=== PATIENT | female | born 2000 | race Caucasian/White ===

== ENCOUNTER → 2024-06-16 11:52 | Outpatient (CLI) | payer OTHER, SELFPAY ==
[2024-06-16 14:30] LABS: Urine N gonorrhoeae NOT DETECTED
[2024-06-16 14:31] LABS: Urine Chlamydia NOT DETECTED
== END ==
LOC: LAB 11:53
PROVIDERS: PCP Family Medicine; Visit Provider Obstetrics & Gynecology
DX: Z34.91 Encounter for supervision of normal pregnancy, unspecified, first trimester (principal); Z3A.09 9 weeks gestation of pregnancy
CPT/HCPCS: 87491; 87591

== ENCOUNTER → 2024-07-14 10:55 | Outpatient (CLI) | payer OTHER, SELFPAY ==
[2024-07-14 11:56] LABS: Add Manual Diff / Slide Review NO; Basophils Absolute Auto 0 /uL (0-100); Basophils Percent Auto 0.1 % (0-2); Eosinophils Absolute Auto 100 /uL (0-450); Eosinophils Percent Auto 0.7 % (2-4); Hemoglobin 12.4 g/dL (12.0-16.0); Lymphocytes Absolute Auto 2100 /uL (1100-4500); Lymphocytes Percent Auto 21.1 % (25-40); Mean Corpuscular HGB Conc 33.5 % (30-36); Mean Corpuscular Hemoglobin 30.4 PG (26-34); Mean Corpuscular Volume 90.9 fL (80-100); Monocytes Absolute Auto 700 /uL (0-900); Monocytes Percent Auto 6.5 % (3-14); Neutrophils Absolute Auto 7300 /uL (1500-7000); Neutrophils Percent Auto 71.6 % (50-75); Platelet Count 246 X10^3/uL (150-400); Red Blood Cell Count 4.07 X10^6/uL (4.0-5.2); Red Cell Distribution Width 13.1 % (11.6-14.8); White Blood Cell Count 10.2 X10^3/uL (4.5-11.0)
[2024-07-14 12:04] LABS: Natera Collection Specimen Collected
[2024-07-14 13:24] LABS: Hepatitis B Surface Antigen NEGATIVE s/c (NEGATIVE)
[2024-07-14 13:39] LABS: HIV 1 & 2 Ab/Ag 4th Gen Combo NEGATIVE (NEGATIVE); Hep C Virus Ab w/Reflex Quant NEGATIVE s/c (NEGATIVE)
[2024-07-15 04:40] LABS: RPR Screen Non Reactive (Non Reactive)
[2024-07-15 10:11] LABS: Varicella IgG Antibody Non Reactive (Non Reactive)
== END ==
PROVIDERS: Specialist; PCP Family Medicine; Referring Provider Obstetrics & Gynecology; Visit Provider Obstetrics & Gynecology
DX: Z34.00 Encounter for supervision of normal first pregnancy, unspecified trimester (principal); Z3A.10 10 weeks gestation of pregnancy
CPT/HCPCS: 36415; 80055; 86787; 86803; 86850; 86900; 86901; 87086; 87389

== ENCOUNTER → 2024-08-11 12:07 | Outpatient (CLI) | payer OTHER, SELFPAY | PROVIDERS: PCP Family Medicine; Referring Provider Obstetrics & Gynecology; Visit Provider Obstetrics & Gynecology | DX: Z34.02 Encounter for supervision of normal first pregnancy, second trimester (principal); Z3A.17 17 weeks gestation of pregnancy | CPT/HCPCS: 36415; 82105 ==

== ENCOUNTER → 2024-09-08 14:50 | Outpatient (CLI) | payer OTHER, SELFPAY ==
--- NOTE | 2024-09-08 14:51 | DI.US.S_ITS ---
PROCEDURE: US OB >= 14 WEEKS FETUS INDICATIONS: ANATOMY OUTSIDE/PRIOR DATING DATA: Last menstrual period (LMP): 04/10/2024. LMP-based estimated date of delivery (HONORIO): 01/15/2025. First dating scan (date and location): 06/17/2019. Estimated date of delivery (HONORIO) from first dating scan: 01/12/2025. The calculations are made using the working HONORIO of 01/15/2025. TECHNIQUE: Real-time scanning was performed of the fetus, with image documentation and biometric measurements. Endovaginal scanning: No COMPARISON: None. FINDINGS: General: A single living intrauterine gestation is present. Presentation: Vertex. Placenta: Placental position is anterior , without previa. Amniotic fluid index: 12.4 cm, normal range is 5-24 cm. Single deepest vertical pocket is 4.1 cm. heart rate: 157 beats per minute. Maternal cervical canal: 3.6 cm long. Normal lower limit is 2.5 cm. biometrics: Biparietal diameter: 5.6 cm, 22 week 2 day Head circumference: 20.0 cm, 22 week 1 day Abdominal circumference: 16.7 cm, 21 week 5 day Femur length: 4.0 cm, 22 week 6 day Clinically estimated gestational age: 21 week 4 day Composite gestational age from present scan: 22 week 2 day Estimated weight and percentile: 487 g, 79 percentile Anatomic survey: Neuro: Ventricles are non-dilated at less than 10 mm. Cisterna magna is normal at 3-11 mm. Cerebellum is normal in size and morphology. Nuchal skin fold: Normal at less than 6 mm between 14-21 weeks gestational age. Face: Nose and lips, facial profile are normal. Spine: No evidence for spina bifida. Heart: 4-chambered heart is present, with normal ventricular outflow tracts. Diaphragm: Diaphragm is intact. Stomach: Left-sided stomach is present. Kidneys: No hydronephrosis. Normal is less than 5 mm in 2nd trimester, less than 7 mm in 3rd trimester. Cord: 3-vessel cord has orthotopic insertion. Possible single nuchal loop Bladder: Normal in size. Extremities: All 4 extremities identified. IMPRESSION: Single live intrauterine consistent with 22 week 2 day gestation by current ultrasound. Normal anatomic survey Possible single loop nuchal cord. Approved by: Govind Winn M.D. on 09/09/2024 at 9:24
== END ==
LOC: US 14:50
PROVIDERS: PCP Family Medicine; Referring Provider Obstetrics & Gynecology; Visit Provider Obstetrics & Gynecology
DX: Z34.02 Encounter for supervision of normal first pregnancy, second trimester (principal); Z3A.20 20 weeks gestation of pregnancy
CPT/HCPCS: 76811

== ENCOUNTER → 2024-12-22 09:43 | Outpatient (CLI) | payer OTHER, SELFPAY ==
[2024-12-23 11:12] LABS: Strep Grp B PCR NEG for Grp B Strep
== END ==
PROVIDERS: Visit Provider Obstetrics & Gynecology
DX: Z36.85 Encounter for antenatal screening for Streptococcus B (principal)
CPT/HCPCS: 87653

== ENCOUNTER 2025-01-24 19:22 | Inpatient (IN) | payer OTHER, SELFPAY ==
[2025-01-24 20:44] VITALS: BP 118/53
[2025-01-24 20:50] LABS: Add Manual Diff / Slide Review NO; Hematocrit 33.1 % (36-46); Hemoglobin 11.1 g/dL (12.0-16.0); Lymphocytes Absolute Auto 3000 /uL (1100-4500); Mean Corpuscular HGB Conc 33.5 % (30-36); Mean Corpuscular Hemoglobin 28.4 PG (26-34); Mean Corpuscular Volume 84.9 fL (80-100); Platelet Count 343 X10^3/uL (150-400)
[2025-01-24] MEDS: ZOLPIDEM 5 MG TABLET PO (23:58)
--- NOTE | 2025-01-25 08:07 | PM.OBHP.IH.1 ---
OB HPI Date/Time Date of admission: 01/24/25 Date Patient Seen: 01/24/25 Time Patient Seen: 20:30 History of Present Condition Chief complaint: induction HONORIO Calculator Estimated Delivery Date Method Current WG Current Estimate 01/15/25 LMP (Certain) 41w 4d Other Estimates 01/12/25 Ultrasound #1 42w 0d Estimated Gestational Age (weeks): 41w3d : 1 care: good care Dating criteria OB: LMP confirmed by 1st trimester US Ultrasounds: normal mid trimester US Obstetrical complications: none Medical complications OB: none Narrative: Patient is a 24yo G1 @ 41w3d presents to L&D for scheduled inductoin of labor at postdates. reports irregular contractions. denies LOF/VB and reports good movement. Indications Indication for induction OB: post dates Preadmission Labs Last OB Lab Results: Blood Type A Positive 01/24/25, 20:05 Antibody Screen Negative 01/24/25, 20:05 Hct, (36-46) 33.1 % L 01/24/25, 20:05 Hgb, (12.0-16.0) 11.1 g/dL L 01/24/25, 20:05 Hep Bs Antigen, (NEGATIVE) Negative s/c 07/14/24, 11:03 Hepatitis C Antibody, (NEGATIVE) Negative s/c 07/14/24, 11:03 Rubella Antibody, (>15) 22.0 IU/mL 07/14/24, 11:03 VZV IgG Antibody, (Non Reactive) Non reactive 07/14/24, 11:03 Glucose 1 Hr 50 gm, (76-139) 74 mg/dL L 10/06/24, 09:17 Group B Strep (PCR) Neg for grp b strep 12/22/24, 09:43 Genetic Screens: Cell-free DNA: Normal Evaluation Evaluation Baseline heart rate: 145 Variability: Moderate (6-25) monitor accelerations: Present Monitor Decelerations: Absent Contraction Frequency (minutes): 10 Uterine Contraction Intensity: Mild Category of Tracing: Reactive Status: Category l Dilation (cm): 0.5 Effacement (%): 50 Dilation: Closed Effacement: 40-50% station: -3 Position of cervix: posterior Consistency: medium Cortez score: 2 PFSH Surgical History (Updated 06/02/24 @ 13:34 by Sandie Stoner RN) [place] teeth extracted Family History (Updated 06/02/24 @ 13:36 by Sandie Stoner RN) Grandfather Congenital heart defect Uncle Congenital heart defect Grandmother Diabetes mellitus Colon cancer Brother Autism Father Family estrangement Social History marital status: number of children: 0 household members: spouse and friend(s) lives independently: Yes caregiver/support person: No housing: house pets and animals: Yes (cat, dogs) education level: high school occupational status: employed 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) special brad needs: No travel history: over 6 months ago seatbelt use: always water heater temp set < 120 deg: Yes working smoke detector in home: Yes fire extinguisher in home: Yes carbon monox detector in home: Yes firearms in home: No do you feel safe at home: Yes second hand exposure: No alcohol intake: former substance use type: does not use during the past year weight has: increased > 10 lbs well-balanced diet: daily or most days daily servings fruits/ve-4 caffeine: No (quit with ) Type(s) of exercise: walking Meds Home Medications and Allergies Home Medications ?Medication ?Instructions ?Recorded ?Confirmed ?Type doxylamine succinate 25 mg tablet 25 mg PO BEDTIME PRN allergy 06/02/24 01/24/25 History symptoms vitamin-ferrous sulfate tab PO 06/02/24 01/11/25 History 27 mg iron-folic acid 0.8 mg tablet Allergies Allergy/AdvReac Type Severity Reaction Status Date / Time No Known Drug Allergies Allergy Verified 01/24/25 22:15 OB Exam Narrative Exam Narrative: general- AAo x 3, NAD abdomen- gravid cervix- 0.5/50/-3 BSUS- vertex Objective Labs 01/24/25 20:05 Labs: Laboratory Results - last 24 hr 01/24/25 20:05 WBC 14.9 H RBC 3.90 L Hgb 11.1 L Hct 33.1 L MCV 84.9 MCH 28.4 MCHC 33.5 RDW 13.7 Plt Count 343 Neut % (Auto) 70.8 Lymph % (Auto) 20.3 L [place] % (Auto) 7.8 Eos % (Auto) 0.6 L Baso % (Auto) 0.5 Neut # (Auto) 14449 H Lymph # (Auto) 3000 [place] # (Auto) 1200 H Eos # (Auto) 100 Baso # (Auto) 100 Blood Type A Positive Antibody Screen Negative Assessment and Plan Assessment and Plan Assessment and Plan narrative: Patient is a 24yo G1 @ 41w3d presents for scheduled induction of labor for postdates. 1. Induction of labor- admit to L&D - CEFM, IVF - cervix unfavorable - misoprostol 50mcg PO q 4 hours for cervical ripening - pain analgesia per request - will augment with pitocin when indicated - GBS negative - EFW by [facility]- 8.5-9lbs - anticipate Time-Based Coding :: [TOTAL MINUTES] spent with patient and on the chart (including review of chart, obtaining history, exam, reviewing outside data, placing orders, documenting exam and treatment plan, and counseling patient) on [DATE].
[2025-01-25] MEDS: LACTATED RINGERS 1,000 ML 999 ML IV (08:53)
--- NOTE | 2025-01-25 08:55 | PM.AN.REGBLK ---
[facility] <Brook Siddiqui CRNA - Last Filed: 01/25/25 08:58> Pre-procedure Procedure: Continuous Lumbar Epidural for L&D Attending OB provider: Chandrika Bell PMH/ROS narrative: , healthy, IOL for post dates PSH/Anesthesia history narrative: Hx wisdom teeth, no anesthesia complications Exam narrative: See pre eval form ASA Class: II Labs: Hct 33.1 % (36-46) L 01/24/25 20:05 Plt Count 343 X10^3/uL (150-400) 01/24/25 20:05 Medications: Current Medications Generic Name Dose Route Start Last Admin Trade Name Freq PRN Reason Stop Dose Admin Carboprost Tromethamine 250 mcg 01/24/25 20:44 Carboprost 250 Mcg/Ml Ampul IM Q90M PRN Bleeding Tranexamic Acid 1,000 mg/ 100 mls @ 600 mls/hr 01/24/25 20:44 Sodium Chloride IV NOW PRN Bleeding Oxytocin/Lactated Ringer's 30 unit in 500 mls @ 200 mls/hr 01/24/25 20:44 Oxytocin Premix IV CONT PRN Bleeding Protocol Lidocaine HCl 20 ml 01/24/25 20:44 Lidocaine 1% 20 Ml INJ INTRA-OP PRN Post Delivery Methylergonovine Maleate 0.2 mg 01/24/25 20:44 Methylergonovine 0.2 Mg Tablet PO Q6HR PRN Heavy Bleeding Methylergonovine Maleate 0.2 mg 01/24/25 20:44 Methylergonovine 0.2 Mg/Ml Vial IM NOW PRN Bleeding Mineral Oil 30 ml 01/24/25 20:44 Mineral Oil 30 Ml Udc TOP PRN PRN Version Misoprostol 400 mcg 01/24/25 20:44 Misoprostol 200 Mcg Tablet SL NOW PRN Bleeding Misoprostol 800 mcg 01/24/25 20:44 Misoprostol 200 Mcg Tablet TX NOW PRN Bleeding Misoprostol 50 mcg 01/24/25 20:44 01/25/25 00:54 Misoprostol 25 Mcg Tablet PO 50 mcg Q4H PRN Administration cervical ripening Naloxone HCl 0.2 mg 01/24/25 20:44 Naloxone 0.4 Mg/Ml Vial IV Q2MIN PRN Opiate Reversal Oxytocin 10 unit 01/24/25 20:44 Oxytocin 10 Unit/Ml Vial IM NOW PRN Bleeding Zolpidem Tartrate 5 mg 01/24/25 23:31 01/24/25 23:58 Zolpidem 5 Mg Tablet PO 5 mg BEDTIME PRN Administration Sleep Allergies: Allergies Allergy/AdvReac Type Severity Reaction Status Date / Time No Known Drug Allergies Allergy Verified 01/24/25 22:15 Procedure Insertion date: 01/25/25 Insertion time: 08:37 Prep/Local: betadine x3 (CHG) and 1% lidocaine (3mL) Interspace: L3-4 Patient position: sitting Needle: 18 gauge Hustead (Mekitec) Loss of resistance with: saline MERVIN at (cm): 8 Catheter placed at SKIN (cm): 14 Catheter in SPACE (cm): 6 Insertion: No CSF, No Blood, No Paresthesia with insertion, No Paresthesia with injection and No Test dose reaction Initial Medications TEST DOSE time: 08:39 TEST DOSE: 1.5% lidocaine with epinephrine 1:200k (mL): 3 BOLUS DOSE time: 08:45 BOLUS DOSE (mL): 6 BOLUS DOSE med: other (infusate) Infusion INFUSION: 0.125% bupivacaine and with fentanyl 2 mcg/mL Initial rate (mL/hr): 10 Post-procedure Anesthesia date START: 01/25/25 Anesthesia time START: 08:25 <Yani Delgado CUSTOMER SERVICE TRAINER - Last Filed: 01/25/25 23:46> Infusion Subsequent interventions: 1130: Decreased basal rate to 6mL/hr and gave 25mg IM ephedrine for persistent hypotension and decelerations. - AB, CUSTOMER SERVICE TRAINER 1512: Increased basal rate to 8ml/hr. - AB, CUSTOMER SERVICE TRAINER 1830: Called to bedside for hip pain that has resolved, now states having intermittent central cervical pain 2/10. Discussed realistic pain goals. Increased basal rate to 10ml/hr and gave 50mcg fentanyl via epidural. -AB, CUSTOMER SERVICE TRAINER 2230: Called to bedside for top off, reporting low anterior pain. She is pushing with good effort. BPs remain on the soft side. Epidural bolus given of 5mL 2% lido and 5mL 0.25% bupi. Premixed diluted ephedrine for RNs to have at bedside if needed. -AB, CUSTOMER SERVICE TRAINER Post-procedure Anesthesia date END: 01/25/25 Anesthesia time END: 23:46 Post-procedure Anesthesia Assessment: Yes CV function: HR/BP stable, Yes Resp function: RR/sat/airway adequate, Yes Post-op hydration adequate, Yes Pain control adequate, Yes Nausea & vomiting absent, Yes Temperature > 36 C, Yes Mental status appropriate and No Anesthesia complications
[2025-01-25] MEDS: ePHEDrine 50 MG/ML VIAL 10 MG IV ×3 (09:15→10:33)
[2025-01-25] MEDS: OXYTOCIN PREMIX 30 UNIT/500 ML PLAST..BAG IV (10:08)
[2025-01-25] MEDS: LACTATED RINGERS 1,000 ML 100 ML IV ×2 (10:11→15:28)
[2025-01-25] MEDS: FENT 2MCG/ML BUPIV 0.125% EPI 200 MCG/100 ML PLAST..BAG 10 MCG EPIDURAL (15:28)
[2025-01-25] MEDS: ONDANSETRON 4 MG/2 ML INJ IV (23:25)
--- NOTE | 2025-01-26 00:38 | P.PCNOB_ITS ---
Events: Postterm Labor > 42 wks and Meconium Stained Fluid Labor & Delivery Delivery date: 01/26/25 Delivery Time: 23:46 Intrapartal Events: Prolonged 2nd Stage > 2.5 hours Cervical ripening method: per misoprostal protocol Induction method: per pitocin protocol Delivery augmentation: rupture of membranes Delivery monitor: external FHT Route of delivery: [facility] L&D Laceration Description: Perineal - 2nd Degree and Vaginal - 2nd Degree Delivery repair: vicryl Estimated blood loss (mL): 800 Anesthesia Type: Epidural Complications: extensive 2nd degree laceration extending to the sphincter capsule. capsule intact bilateraly lateral vaginal lacerations repaired with running suture. The remaining second degree laceration repaired in usual fashion. significant swelling of vaginal tissues noted due to pushing >4 hours single live female , apgars-8/9, normal 3 vessel cord intact placenta, thick meconium stained fluid, there was ~ 200ml of blood behind the placenta as it delivered suspicious for possible abruption Narrative: Patient is a 24yo G1 @41w3d presented to L&D for scheduled induction of labor. She received misoprostol for cervical ripening and pitocin. Amniotomy performed at 6cm noting thick meconium stained fluid. She received an epidural for pain control and progressed to completed dilation and pushed for 4 hours and eventurally progressed to spontaneous delivery of a vigorous placed on mother's chest. The cord was clamped and cut after a delay and the placenta delivered spontaneously intact with notably ~ 200ml of blood behind the placenta. Pitocin given and fundal massage and uterine tone appropriate. the laceration was repaired with 2-0 and 3-0 vicryl. Paitent and mother resting comfortably. EBL- 800ml will order a CBC for the am. Plan for aftercare: Routine care
[2025-01-26] MEDS: DERMOPLAST SPRAY 20% 60 ML 1 SPRAY TOP (02:26)
[2025-01-26] MEDS: KETOROLAC 30 MG/ML VIAL IV (02:26)
[2025-01-26] MEDS: ACETAMINOPHEN 325 MG TABLET 650 MG PO ×3 (05:22→18:18)
[2025-01-26] MEDS: IBUPROFEN 600 MG TABLET PO ×3 (08:05→22:18)
[2025-01-26 11:58] LABS: Add Manual Diff / Slide Review NO; Hematocrit 24.9 % (36-46); Hemoglobin 8.3 g/dL (12.0-16.0); Lymphocytes Absolute Auto 3400 /uL (1100-4500); Mean Corpuscular HGB Conc 33.2 % (30-36); Mean Corpuscular Hemoglobin 28.3 PG (26-34); Mean Corpuscular Volume 85.4 fL (80-100); Platelet Count 272 X10^3/uL (150-400)
--- NOTE | 2025-01-26 16:15 | P.PNOB_ITS ---
Subjective - OB Subjective Date Patient Seen: 01/26/25 Time Patient Seen: 13:00 Objective Labs 01/26/25 11:50 Labs: Laboratory Results - last 24 hr 01/26/25 11:50 WBC 22.1 H RBC 2.91 L Hgb 8.3 L Hct 24.9 L MCV 85.4 MCH 28.3 MCHC 33.2 RDW 13.9 Plt Count 272 Neut % (Auto) 77.9 H Lymph % (Auto) 15.6 L [place] % (Auto) 6.1 Eos % (Auto) 0.3 L Baso % (Auto) 0.1 Neut # (Auto) 02571 H Lymph # (Auto) 3400 [place] # (Auto) 1300 H Eos # (Auto) 100 Baso # (Auto) 0 Assessment & Plan Time-Based Coding :: [TOTAL MINUTES] spent with patient and on the chart (including review of chart, obtaining history, exam, reviewing outside data, placing orders, documenting exam and treatment plan, and counseling patient) on [DATE].
[2025-01-27] MEDS: IBUPROFEN 600 MG TABLET PO ×2 (04:01→10:32)
[2025-01-27] MEDS: ACETAMINOPHEN 325 MG TABLET 650 MG PO ×2 (04:02→10:33)
--- NOTE | 2025-01-27 09:04 | P.CONS_ITS ---
History of Present Illness Consult details Chief complaint: L&D Reason for consult: c/o numbness and tingling in R thigh and difficulting urinating Narrative: 01/26 pt with c/o numbness and tingling in right thigh over superficial femoral cutaneous nerve distribution and difficulty urinating. 01/27 pt able to urinate on her own and reports resolution of numbness. tested bilaterally to sharp and dull nerve sensation and pt states it feels the same on both sides. pt states she was more numb on her right side when pushing so she would often readjust her left leg during pushing but did not readjust right leg since she couldn't feel it. pt states she pushed for 3.5 hours and delivered 10 lbs baby. pt states she is able to urinate on her own as of today. Meds Home Medications and Allergies Home Medications ?Medication ?Instructions ?Recorded ?Confirmed ?Type doxylamine succinate 25 mg tablet 25 mg PO BEDTIME PRN allergy 06/02/24 01/24/25 History symptoms vitamin-ferrous sulfate tab PO 06/02/2401/11 History 27 mg iron-folic acid 0.8 mg tablet Allergies Allergy/AdvReac Type Severity Reaction Status Date / Time No Known Drug Allergies Allergy Verified 01/24/25 22:15 Objective Labs 01/26/25 11:50 Labs: Laboratory Results - last 24 hr 01/26/25 11:50 WBC 22.1 H RBC 2.91 L Hgb 8.3 L Hct 24.9 L MCV 85.4 MCH 28.3 MCHC 33.2 RDW 13.9 Plt Count 272 Neut % (Auto) 77.9 H Lymph % (Auto) 15.6 L [place] % (Auto) 6.1 Eos % (Auto) 0.3 L Baso % (Auto) 0.1 Neut # (Auto) 29387 H Lymph # (Auto) 3400 [place] # (Auto) 1300 H Eos # (Auto) 100 Baso # (Auto) 0 PFSH Surgical History (Updated 06/02/24 @ 13:34 by Sandie Stoner RN) [place] teeth extracted Family History (Updated 06/02/24 @ 13:36 by Sandie Stoner RN) Grandfather Congenital heart defect Uncle Congenital heart defect Grandmother Diabetes mellitus Colon cancer Brother Autism Father Family estrangement Social History marital status: number of children: 0 household members: spouse and friend(s) lives independently: Yes caregiver/support person: No housing: house pets and animals: Yes (cat, dogs) education level: high school occupational status: employed 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) special brad needs: No travel history: over 6 months ago Safety seatbelt use: always water heater temp set < 120 deg: Yes working smoke detector in home: Yes fire extinguisher in home: Yes carbon monox detector in home: Yes firearms in home: No do you feel safe at home: Yes Tobacco & Substance Use second hand exposure: No alcohol intake: former substance use type: does not use Diet and Exercise during the past year weight has: increased > 10 lbs well-balanced diet: daily or most days daily servings fruits/ve-4 caffeine: No (quit with ) Type(s) of exercise: walking Assessment & Plan Time-Based Coding :: [TOTAL MINUTES] spent with patient and on the chart (including review of chart, obtaining history, exam, reviewing outside data, placing orders, documenting exam and treatment plan, and counseling patient) on [DATE].
[2025-01-27 10:32] VITALS: TEMP 36.7
[2025-01-27 10:33] VITALS: TEMP 36.7
--- NOTE | 2025-01-27 11:31 | PM.OBDS.1 ---
Discharge Providers Provider Date of admission: 01/24/25 19:22 Discharge Date: 01/27/25 Consults: 01/24/25 20:44 Consult to Anesthesiology Urgent Comment: Consulting Provider: Anesthesiologist Reason for consultation: Epidural 01/26/25 00:48 Consult to Accounts Adjustable Clerk Routine Comment: 01/26/25 01:54 Consult to Accounts Adjustable Clerk Routine Comment: Discharge provider: Jessie Gillette MD Summary Hospital Course Date Patient Seen: 01/27/25 Time Patient Seen: 09:00 Diagnoses: s/p , macrosomia Hospital Course: 24yo G1 admittd to facility at 41w3d for indicated IOL in setting of late term . Pt underwent induction with cervical ripening, progressing to further augmentation with IV pitocin and AROM at 6cm with return of thick meconium. Second stage was prolonged at approximately 4h with delivery of macrosomic LBFI (10lbs). Significant vulvovaginal edema noted at time of delivery secondary to prolonged second stage and pt necessitated straight catheterization x1 after which she was able to urinate fully without issue. Patient discharged to home on PPD1 meeting all discharge milestones, declined contraception at time of discharge with appropriate counseling Peripartum Data Delivery Method: Natural Vaginal Laceration Description: Perineal - 2nd Degree Episiotomy description: None complications: none 1: Gender: Female Disposition of : home Status at Discharge Cognitive/behavioral status at discharge: oriented Functional status at discharge: independent ambulation Overall status at discharge: patient is back to baseline Time Spent with Patient Time attestation: Total time spent providing and/or coordinating discharge services: Objective Labs 01/26/25 11:50 Labs: Laboratory Results - last 24 hr 01/26/25 11:50 WBC 22.1 H RBC 2.91 L Hgb 8.3 L Hct 24.9 L MCV 85.4 MCH 28.3 MCHC 33.2 RDW 13.9 Plt Count 272 Neut % (Auto) 77.9 H Lymph % (Auto) 15.6 L [place] % (Auto) 6.1 Eos % (Auto) 0.3 L Baso % (Auto) 0.1 Neut # (Auto) 68013 H Lymph # (Auto) 3400 [place] # (Auto) 1300 H Eos # (Auto) 100 Baso # (Auto) 0 Exam Vital Signs (past 8 hours): - 01/27/25 10:32 01/27/25 10:33 Temperature 98.0 F 98.0 F Const General: cooperative, healthy appearing and comfortable Nutritional Appearance: average body habitus Orientation: alert, awake and oriented x3 Limitations: mental status not altered Resp Effort & Inspection: normal respiratory effort and able to speak in complete sentences Cardio Pulses: normal peripheral pulses GI Other: fundus firm << umb, non-tender Other: deferred Back/Spine/Pelvis Back: normal to inspection Skin General: no rashes or lesions noted Neuro General: patient alert, patient awake and patient oriented x3 Extrem General: normal to inspection Psych Mental Status: mental status grossly normal Judgment: judgment good Discharge Plan Discharge Plan Patient Disposition: Home Provider Discharge Comment: Nothing in the vagina for 6 weeks. No tampons, intercourse, douching, swimming in fresh water/pools/hot tubs. Tub baths are okay if the tub is cleaned well first Discharge orders & Medications Prescriptions: New ibuprofen 800 mg tablet 800 mg PO Q8H PRN (Reason: pain) Qty: 20 0RF acetaminophen 500 mg tablet 500 mg PO Q6H PRN (Reason: pain) Qty: 20 0RF Tucks (witch tyler) 50 % pads, medicated 1 pad topical BID-QID PRN (Reason: skin cleansing) Qty: 100 0RF Continued vit-ferrous sulfat-FA 27 mg iron- 0.8 mg tablet PO doxylamine succinate 25 mg tablet 25 mg PO BEDTIME PRN (Reason: allergy symptoms) Follow up/Referrals: Chandrika Bell DO [Physician, Gynecology] - 02/11/25 11:45 am Referral Note: Also follow up with Dr. Bell on 03/11/25 at 10:15 am for your 6 week appointment. Thank you! Diet/Activity/Treatments Diet: Diet as Tolerated and Regular Visit Report/Discharge Packet Stand Alone Forms: Discharge: Care, [facility] [place] [facility], Patient Portal/API, Stroke Signs & Symptoms, Influenza Vaccine Info, Notice of Privacy Practices, Inpatient vs Outpatient, Pneumococcal Vaccine Info, Pt. Rights & Responsibilities
== END 2025-01-27 13:15 | disposition home or self-care (01) | DRG 807 ==
PROVIDERS: Admitting Provider Obstetrics & Gynecology; Referring Provider Obstetrics & Gynecology; Visit Provider Obstetrics & Gynecology
DX: O48.0 Post-term pregnancy (principal); Z37.0 Single live birth; Z3A.41 41 weeks gestation of pregnancy; O70.1 Second degree perineal laceration during delivery
CPT/HCPCS: 36415; 59050; 59200; 76815; 85025; 86850; 86900; 86901; G0379; J1885; J2405; J2590; J3010; J7120